=== PATIENT | male | born 1940 | race Caucasian/White ===

== ENCOUNTER 2019-05-07 08:13 | Day surgery (SDC) | payer MEDICARE, BC ==
[2019-05-07] VITALS (97 sets, daily range): BP systolic 93–181; BP diastolic 42–85; PULSE 40–55; TEMP 97.5–98.3; O2SAT 94–99
[~2019-05-07] VITALS: Ht 177.8 cm; Wt 79.6 kg
[~2019-05-07 08:13] MED LIST: ATORVASTATIN; CLARINEX 5MG5 MG PO; FERROUS SU325 MG/TAB PO; FOLIC ACID0.4 MG PO; LISINOPRIL10 MG PO; MVI PO; NASONEX SPRAY NS; PROTONIX 40MG T40 MG PO; PROZAC 20MG20 MG PO; TRAMADOL50 MG PO; TYLENOL 500MG500 MG PO; VITAMIN C500 MG PO
[2019-05-07] MEDS ORDERED: TOPROL XL 25MG25 MG PO (08:56)
[2019-05-07] MEDS ORDERED: COZAAR 50MG50 MG/TAB PO (08:57)
[2019-05-07 08:58] LABS: HEMOGLOBIN 11.7 g/dl (13.5-18.0); MEAN CELL VOLUME 97 fl (80.0-100.0); MEAN CORPUSCULAR HEMOGLOBIN 32 pg (27.0-31.0); MEAN CORPUSCULAR HGB CONC 33 g/dl (33.0-37.0); MEAN PLATELET VOLUME 10.9 fl (7.4-10.4); PLATELET COUNT 268 K/mm3 (130-400); RED BLOOD COUNT 3.67 M/mm3 (4.20-5.60); REDCELL DISTRIBUTION WIDTH-CV 14.7 % (11.5-14.5)
[2019-05-07] MEDS ORDERED: RASUVO25 MG/0.5 SQ (08:58)
[2019-05-07] MEDS ORDERED: ZOCOR 40MG40 MG PO (08:59)
[2019-05-07] MEDS ORDERED: MULTI VITAMINS1 TAB PO (08:59)
[2019-05-07 09:00] LABS: HEMATOCRIT 35.6 % (42.0-52.0)
[2019-05-07 09:40] LABS: CALCIUM 9.3 mg/dL (8.4-10.2); CREATININE, serum 0.9 (0.66-1.25); POTASSIUM 4.7 mmol/L (3.4-5.0)
--- NOTE | 2019-05-07 10:09 | NUR ---
SEE MERGE DOCUEMENTATION FOR MEDICATION ADMINISTRATION TIMES AND INTRA\POST PROCEDURE SEDATION ASSESSMENTS. PLAN FOR [facility] FIRST; LHC TO FOLLOW, POSSIBLE RHC AND LOOP. CONSENT OBTAINED.
--- NOTE | 2019-05-07 12:33 | NUR ---
Pt transferred to ICU 2 at this time with montior in place. VS equipment connected on arrival to ICU. VS's WNL at this time. Pt A&O x3. Bedside handoff to KRIS Sanchez. Right radial access site assessed; 12 cc air remain in TR band. Site without bleeding, oozing, bruising. Surrounding tissue soft. No s/sx of impaired blood flow to hand noted. Pt denies pain/numbness to fingers. All questions answered at this time.
--- NOTE | 2019-05-07 12:35 | NUR ---
Patient arrives to ICU 2 from [facility]. He is attached to monitors and assesment and vitals are as charted. Right radial site is CDI and soft with TR band in place and 12mls air instilled per report. Care assumed.
--- NOTE | 2019-05-07 17:39 | NUR ---
Dr. Schaefer paged at [phone] and returns call at [phone]. Report provided to include patient with asymptomatic hypotension, SBP ranging from 79-86 and MAP <65. MD provides order for 500ml bolus 1/2NS. Will leave nitro patch on at this time. MD asks that nursing staff "continue to monitor". Care ongoing.
--- NOTE | 2019-05-07 18:19 | NUR ---
Patient with SBP >100 and MAP above 65. Will continue to monitor.
--- NOTE | 2019-05-07 18:55 | NUR ---
Bedside report received from KRIS Sanchez.
--- NOTE | 2019-05-07 20:00 | NUR ---
Assessment complete. Patient resting in bed, he is alert and oriented x4. Complaints of a mild headache rated 3/10, requesting tylenol, to be provided. Patients lungs are clear in all bonner with diminished bases bilaterally. HR and rhythm are regular, he is bradycardic throwing occasional PVC's. Normal S1 and S2 heard. Bowel sounds are active x4. Patient pulses are palpable in all extremities. Cath site is clean and dry, no hematoma or bruising noted. TR band in place, 2ml of air removed. Patient has no further needs at this time. Will continue to monitor. Call light within reach.
[2019-05-08] VITALS (503 sets, daily range): BP systolic 103–135; BP diastolic 45–59; PULSE 48–50; TEMP 97.6–97.9; O2SAT 92–100
--- NOTE | 2019-05-08 | NUR ---
Patient resting in bed. He is awake and requests to get up to the restroom again. Assisted with monitoring equipment and cords. Patient returns to bed after urinating and passing gas. No complaints of pain. Vitals obtained and remain WNL. Patient has no further needs. Will continue to monitor. Call light within reach.
--- NOTE | 2019-05-08 04:00 | NUR ---
Patient asleep at this time. Awakens easily to name. No complaints of pain. Vitals obtained and remain WNL. Patient has no further needs. Will continue to monitor. Call light within reach.
[2019-05-08 04:32] LABS: HEMATOCRIT 30.7 % (42.0-52.0); HEMOGLOBIN 10.2 g/dl (13.5-18.0); MEAN CELL VOLUME 95 fl (80.0-100.0); MEAN CORPUSCULAR HEMOGLOBIN 32 pg (27.0-31.0); MEAN CORPUSCULAR HGB CONC 33 g/dl (33.0-37.0); MEAN PLATELET VOLUME 10.2 fl (7.4-10.4); PLATELET COUNT 210 K/mm3 (130-400); RED BLOOD COUNT 3.22 M/mm3 (4.20-5.60); REDCELL DISTRIBUTION WIDTH-CV 14.6 % (11.5-14.5)
[2019-05-08 04:42] LABS: CALCIUM 8.5 mg/dL (8.4-10.2); CREATININE, serum 0.84 (0.66-1.25); POTASSIUM 4.1 mmol/L (3.4-5.0)
[2019-05-08 05:26] LABS: BAND 1 % (0-10); BASOPHIL 3 % (0-2); EOSINOPHIL 4 % (0-4); HYPERSEGMENTED POLYS PRESENT; LYMPHOCYTE 20 % (20.0-51.0); NEUTROPHILS 67 % (42.0-75.2)
[2019-05-08 05:27] LABS: HYPOCHROMIA 1+; PLATELET ESTIMATE NORMAL (NORMAL)
--- NOTE | 2019-05-08 07:30 | NUR ---
Bedside report given to KRIS Quan and student nurse. Cath site assessed and remains clean and dry, no hematoma or bruising. Transfer of care at this time.
[2019-05-08] MEDS ORDERED: BRILINTA90 MG PO (09:42)
[2019-05-08] MEDS ORDERED: TOPROL XL 25MG25 MG PO (09:45)
[2019-05-08] MEDS ORDERED: NITRO-DUR0.4 MG/PAT TD (09:45)
[2019-05-08] MEDS ORDERED: ASPIRIN E.C. 8181 MG PO (09:46)
[2019-05-08] MEDS ORDERED: COZAAR 50MG50 MG/TAB PO (09:59)
--- NOTE | 2019-05-08 12:07 | NUR ---
DISCHARGE INSTRUCTIONS AND PACKET REVIEWED. FOLLOW UP APPOINTMENTS DISCUSSED. IV DISCONTINUED. PATIENT TAKEN OUT TO FRONT ENTRANCE. HE WANTS TO SIT ON BENCH UNTIL HIS ARRIVES IN A FEW MINUTES.
== END 2019-05-08 12:34 | disposition home or self-care (01) ==
LOC: COL.CAR 08:13 → ICU 12:23 → COL.CAR 05-08 12:34
PROVIDERS: Internal Medicine Cardiovascular Disease
DX: I25.10 Atherosclerotic heart disease of native coronary artery without angina pectoris (principal); I08.1 Rheumatic disorders of both mitral and tricuspid valves; I10 Essential (primary) hypertension; I49.3 Ventricular premature depolarization; I47.1 Supraventricular tachycardia; I47.2 Ventricular tachycardia; E78.5 Hyperlipidemia, unspecified; M19.90 Unspecified osteoarthritis, unspecified site; M06.9 Rheumatoid arthritis, unspecified; Z85.46 Personal history of malignant neoplasm of prostate; Z92.3 Personal history of irradiation; Z98.1 Arthrodesis status; Z96.642 Presence of left artificial hip joint; Z96.641 Presence of right artificial hip joint; Z88.2 Allergy status to sulfonamides; Z88.6 Allergy status to analgesic agent; Z90.79 Acquired absence of other genital organ(s); Z79.82 Long term (current) use of aspirin; Z95.5 Presence of coronary angioplasty implant and graft; Z95.818 Presence of other cardiac implants and grafts; Z82.61 Family history of arthritis; Z83.3 Family history of diabetes mellitus; Z82.49 Family history of ischemic heart disease and other diseases of the circulatory system
CPT/HCPCS: OP; C1764; C1769; C1874; C1887; C9600; J0583; J1644; J2250; J2704; J3010; Q9967

== ENCOUNTER → 2021-02-03 | Outpatient (CLI) | payer MEDICARE, BC ==
[~2021-02-03] VITALS: Ht 177.8 cm; Wt 80.0 kg
[2021-02-03] VITALS (7 sets, daily range): BP systolic 154–176; BP diastolic 75–82; PULSE 52–96
[~2021-02-03] MED LIST changes: +ASPIRIN E.C. 8181 MG PO; +BRILINTA60 MG PO; +BRILINTA90 MG PO; +COZAAR 50MG50 MG/TAB PO; +FOLIC ACID 11 MG/TA1 PO; +MULTIPLE VITAMI1 TA5 PO; +NITRO-DUR0.4 MG/PAT TD; +RASUVO25 MG/0.5 SQ; +TOPROL XL 25MG25 MG PO; +ULTRAM 50MG TAB50 MG PO; +ZOCOR 40MG40 MG PO
== END ==
LOC: COL.CARD 06:30
DX: I25.10 Atherosclerotic heart disease of native coronary artery without angina pectoris (principal); Z01.810 Encounter for preprocedural cardiovascular examination
CPT/HCPCS: A9500; J2785

== ENCOUNTER 2021-02-22 10:40 | Day surgery (SDC) | payer MEDICARE, BC ==
[2021-02-22] VITALS (9 sets, daily range): BP systolic 108–136; BP diastolic 54–69; PULSE 52–61; TEMP 98.3
[~2021-02-22] VITALS: Ht 177.8 cm; Wt 81.0 kg
[2021-02-22 12:54] LABS: MEAN CELL VOLUME 97 fl (80.0-100.0); MEAN CORPUSCULAR HEMOGLOBIN 32 pg (27.0-31.0); MEAN CORPUSCULAR HGB CONC 33 g/dl (33.0-37.0); MEAN PLATELET VOLUME 9.6 fl (7.4-10.4); PLATELET COUNT 273 K/mm3 (130-400); RED BLOOD COUNT 3.76 M/mm3 (4.20-5.60); REDCELL DISTRIBUTION WIDTH-CV 14.7 % (11.5-14.5)
[2021-02-22 12:56] LABS: HEMATOCRIT 36.6 % (42.0-52.0)
[2021-02-22 13:03] LABS: PROTHROMBIN TIME 11.5 SECONDS (9.7-12.8)
[2021-02-22 13:05] LABS: CALCIUM 9.5 mg/dL (8.4-10.2); CREATININE, serum 0.84 (0.66-1.25); POTASSIUM 4.2 mmol/L (3.4-5.0)
[2021-02-22 13:06] LABS: PARTIAL THROMBOPLASTIN TIME 32.6 SECONDS (26.0-37.0)
--- NOTE | 2021-02-22 14:10 | NUR ---
PT BACK FROM [facility]. REPORT FROM YURIDIA PONCE. PT AWAKE AND ALERT, PWD, TR BAND TO RT WRIST, CMS INTACT DISTAL. NSR-SB ON MONITOR. PT UPDATED ON POC, LUNCH ORDERED. CALL LIGHT IN REACH.
--- NOTE | 2021-02-22 17:29 | NUR ---
Pt is dressed and ready to go home, sitting in chair in room 11. tr band was deflated with no problem, site dressed with bandaid, folded 2x2 and coban, cms intact distal. IV was dc'd with cath intact, dressing applied. i have reviewed dc and fu instructions with pt. pt verbalized understanding and denied any questions. pt now waiting for his to pick him up.
== END 2021-02-22 18:02 | disposition home or self-care (01) ==
LOC: COL.CAR 10:40
PROVIDERS: Internal Medicine Cardiovascular Disease
DX: I25.10 Atherosclerotic heart disease of native coronary artery without angina pectoris (principal); I25.82 Chronic total occlusion of coronary artery; T82.855A Stenosis of coronary artery stent, initial encounter; C61 Malignant neoplasm of prostate; Z20.822 Contact with and (suspected) exposure to COVID-19; I10 Essential (primary) hypertension; E78.5 Hyperlipidemia, unspecified; M16.11 Unilateral primary osteoarthritis, right hip; Q21.1 Atrial septal defect; Z79.899 Other long term (current) drug therapy; Z79.02 Long term (current) use of antithrombotics/antiplatelets; Z95.5 Presence of coronary angioplasty implant and graft; Z95.9 Presence of cardiac and vascular implant and graft, unspecified
CPT/HCPCS: J1644; J2250; J3010; Q9967